=== PATIENT | female | born 1955 | race Caucasian/White ===

== ENCOUNTER → 2016-07-08 | Outpatient (CLI) | payer MEDICARE ==
[2016-07-08 11:43] LABS: Blood Urea Nitrogen 15 mg/dL (7-17); Non-African American GFR(MDRD) >60 (>60 ml/min/1.73 sqM)
--- NOTE | 2016-07-08 16:08 | MR ---
EXAMINATION TYPE: MR lumbar spine wo/w con DATE OF EXAM: 07/08/2016 12:47 PM COMPARISON: NONE HISTORY: low back pain, pain and weakness left leg CONTRAST: 20 mL intravenous MultiHance. TECHNIQUE: Multiplanar, multisequence images of the lumbar spine were acquired. FINDINGS: Cord terminates at the L1 level. Pedicle screws are present L3, L4 and L5. L5-S1: Laminectomy has been performed at this level. Endplate spurring from the inferior endplate of L5 has epidural space impression. Some right lateral foraminal narrowing is present. Left foramen is patent. No AP spinal canal stenosis is present. L4-L5: No significant disc bulge or disc herniation. No spinal canal stenosis. No foraminal stenosi s. Facets are poorly visualized due to the pedicle screws. Fusion through this disc level appears to be present.. L3-L4: No significant disc bulge or disc herniation. No spinal canal stenosis. No foraminal stenosi s. Previous disc herniation at this level is not identified. L2-L3: No significant disc bulge or disc herniation. No spinal canal stenosis. No foraminal stenosi s. Facet hypertrophy is present with mild posterior lateral thecal sac compression.. L1-L2: No significant disc bulge or disc herniation. No spinal canal stenosis. No foraminal stenosi s. Mild facet hypertrophy is present.. T12-L1: There is mild left paracentral disc bulge with anterior thecal sac compression. No cord conta ct is evident. No spinal canal stenosis present. Neural foramen are patent. Hemangioma is within the T12 vertebral body. . No abnormal enhancement. IMPRESSION: 1. Postsurgical changes lower lumbar spine. 2. Previous disc herniation L3-4 and not evident at this time. 3. No significant interval change. 4. Facet hypertrophy greatest at L2-L3 with mild posterior lateral thecal sac compression. 5. Right foraminal narrowing at L5-S1 due to facet hypertrophy
== END | disposition home or self-care (01) ==
LOC: RADMRIMAIN 11:13
PROVIDERS: ATTEND Physical Medicine & Rehabilitation
DX: M99.73 Connective tissue and disc stenosis of intervertebral foramina of lumbar region (principal); M43.8X7 Other specified deforming dorsopathies, lumbosacral region; M47.22 Other spondylosis with radiculopathy, cervical region; M46.1 Sacroiliitis, not elsewhere classified; Z98.1 Arthrodesis status
CPT/HCPCS: 82565; 84520; 72158; A9577

== ENCOUNTER → 2018-11-16 | Outpatient (CLI) | payer MEDICARE ==
--- NOTE | 2018-11-16 10:13 | MR ---
EXAMINATION TYPE: MR lumbar spine wo/w con DATE OF EXAM: 11/16/2018 COMPARISON: 07/08/2016 HISTORY: Low back pain / Sacroiliitis CONTRAST: 11 mL Gadavist TECHNIQUE: T1 and T2 axial and sagittal, postcontrast T1 axial and sagittal images of the lumbar spi ne are submitted. FINDINGS: There is no abnormal signal seen within the visualized spinal cord or paraspinal soft tissu es. On the sagittal images there is disc bulging or protrusion at T10-11 and T11-T12 and a T12 vertebral body hemangioma. At T12-L1 there is left paracentral disc bulging but no canal stenosis or foraminal encroachment. At L1-2 there is broad-based disc bulging centrally with no canal stenosis or foraminal encroachment. At L2-3 there is degenerative disc disease with broad-based disc bulging and hypertrophic change of t he facets. Findings suggest moderate bilateral foraminal encroachment and mild central canal stenosis . At L3-4 there is postsurgical change with no obvious disc herniation or canal stenosis. Neural forami na patent. Stable minimal anterolisthesis L3 on L4. At L4-5 there is postsurgical changes with no disc herniation or canal stenosis. Neural foramina watson nt. At L5-S1 there is degenerative disc disease with central disc protrusion which appears stable from pr ior exam. Neural foramina remain patent. Postsurgical changes are noted. IMPRESSION: 1. Stable postsurgical changes. Disc protrusion L5-S1 centrally stable. 2. Broad-based disc bulging with hypertrophic changes L2-L3 with mild canal stenosis and bilateral fo raminal encroachment. This is similar to the prior exam. 3. There is sagittal disc bulging T10-11, T11-12 and T12-L1 as discussed above. These are retrospecti vely stable from prior exam. Correlate with thoracic MRI as clinically warranted.
== END | disposition home or self-care (01) ==
LOC: RADMRIMAIN 08:39
PROVIDERS: ATTEND Physical Medicine & Rehabilitation
DX: M48.061 Spinal stenosis, lumbar region without neurogenic claudication (principal); M51.25 Other intervertebral disc displacement, thoracolumbar region; M51.26 Other intervertebral disc displacement, lumbar region; M51.27 Other intervertebral disc displacement, lumbosacral region; M96.1 Postlaminectomy syndrome, not elsewhere classified; Z98.890 Other specified postprocedural states
CPT/HCPCS: 72158; A9585

== ENCOUNTER → 2022-08-21 | Outpatient (CLI) | payer MEDICARE ==
[2022-08-21 09:06] LABS: Prothrombin Time 10.3 sec (9.0-12.0)
== END | disposition home or self-care (01) ==
LOC: LABWHC1 08:23
PROVIDERS: ATTEND Dentist Oral and Maxillofacial Surgery
DX: D68.32 Hemorrhagic disorder due to extrinsic circulating anticoagulants (principal)
CPT/HCPCS: 36415; 85610